=== PATIENT | female | born 1965 | race Caucasian/White ===

== ENCOUNTER 2017-03-18 08:01 | Outpatient (CLI) | payer BC ==
--- NOTE | 2017-03-22 11:46 | CT Report ---
DATE OF SERVICE: 03/18/2017 CT SINUSES WITHOUT CONTRAST: 03/18/2017 CLINICAL INDICATION: Chronic sinusitis. TECHNIQUE: Axial CT images of the paranasal sinuses were obtained without contrast, following which, sagittal, and coronal reconstructions were performed. In accordance with CT protocol optimization, one or more of the following dose reduction techniques w ere utilized for this exam: Automated exposure control, adjustment of mA and/or KV based on patient size , or use of iterative reconstructive technique. FINDINGS: There is mild mucosal thickening in the inferior right maxillary sinus. The left maxillar y sinus, ethmoid air cells, frontal sinuses and sphenoid sinus are unremarkable. No osseous destruction is se en. The ostiomeatal units are patent bilaterally. The visualized orbital contents are unremarkable. The mas toid air cells are normally pneumatized. IMPRESSION: Mild chronic right maxillary sinus disease. TD: 03/18/2017 21:43
== END 2017-03-18 08:02 | disposition home or self-care (01) ==
LOC: DI 08:01
PROVIDERS: ATTEND Family Medicine
DX: J32.0 Chronic maxillary sinusitis (principal)
CPT/HCPCS: 70486